=== PATIENT | male | born 1970 | race Caucasian/White ===

== ENCOUNTER 2020-10-20 11:55 | Emergency (ER) | payer OTHER ==
[2020-10-20 12:04] VITALS: BP 127/80; PULSE 83; TEMP 97.8; BMI 38.4
[2020-10-20] MEDS ORDERED: KETOROLAC TROMETHAMINE 30 MG/1 ML VIAL IM ONE (14:40)
[2020-10-20] MEDS ORDERED: KETOROLAC TROMETHAMINE 30 MG/1 ML VIAL ONE (14:44)
== END 2020-10-20 15:00 | disposition home or self-care (01) ==
LOC: JER 11:55
PROC: 3E0233Z Introduction of Anti-inflammatory into Muscle, Percutaneous Approach (ICD-10-PCS; principal; 2020-10-20)
DX: R10.33 Periumbilical pain (principal)
CPT/HCPCS: 99284-25

== ENCOUNTER 2022-02-08 21:25 | Emergency (ER) | payer OTHER ==
[2022-02-08 22:05] VITALS: BP 116/70; PULSE 65; RESP 20; TEMP 98.3; BMI 42.8
== END 2022-02-08 22:27 | disposition home or self-care (01) ==
LOC: JER 21:25
DX: K42.9 Umbilical hernia without obstruction or gangrene (principal)
CPT/HCPCS: 99282-25

== ENCOUNTER 2025-03-10 19:23 | Emergency (ER) | payer OTHER ==
[2025-03-10 19:38] VITALS: BP 120/79; PULSE 69; RESP 18; TEMP 98.8; BMI 38.4
== END 2025-03-10 20:27 | disposition home or self-care (01) ==
LOC: JERFT 19:23
DX: H61.21 Impacted cerumen, right ear (principal)
CPT/HCPCS: 99283-25

== ENCOUNTER 2025-03-18 14:12 | Emergency (ER) | payer OTHER ==
[2025-03-18 14:25] VITALS: BP 111/64; PULSE 76; RESP 18; TEMP 98; BMI 38.4
== END 2025-03-18 15:33 | disposition home or self-care (01) ==
LOC: JER 14:12
DX: R19.7 Diarrhea, unspecified (principal)
CPT/HCPCS: 99282-25